=== PATIENT | female | born 1955 | race Caucasian/White ===

== ENCOUNTER 2018-02-04 08:39 | Outpatient (CLI) | payer MEDICAID ==
[~2018-02-04 08:39] MED LIST: ACET-1008 PO; ALBU8.5H4 IH; CALCIUM CARBONATE PO; DIAZ5TAB4 PO; GUAR1PAC2 PO; HYDR-3965 PO; OMEG1CAP46 PO; OMEP-84 PO; POLY17PO10 PO; SYN0.1T PO; TEG100T PO; VAL5T PO; VENL75TA4; VITAMIN D 3 PO
== END 2018-02-04 23:59 | disposition home or self-care (01) ==
LOC: RAD 08:39
PROVIDERS: ATTEND Family Medicine
DX: R56.9 Unspecified convulsions (principal); R94.31 Abnormal electrocardiogram [ECG] [EKG]; G80.8 Other cerebral palsy; J44.9 Chronic obstructive pulmonary disease, unspecified; Z79.899 Other long term (current) drug therapy
CPT/HCPCS: 95816

== ENCOUNTER 2018-03-29 13:22 | Inpatient (IN) | payer MEDICAID ==
[~2018-03-29] VITALS: Ht 149.9 cm; Wt 55.9 kg
[~2018-03-29 13:22] MED LIST changes: +ACET-1008 PEG; -ACET-1008 PO
[2018-03-29] MEDS: normal saline 1000ML IV soln IVB ONE ×2 (13:58→15:23)
[2018-03-29 14:24] LABS: BASOPHILS % (AUTO) 1.2 % (0-1); EOSINOPHILS # (AUTO) 0.3 X10'3 (0-0.9); HEMATOCRIT 36.9 % (35.0-45.0); HEMOGLOBIN 12.7 g/dl (12.0-16.0); LYMPHOCYTES % (AUTO) 40.6 % (21-51); MEAN CORPUSCULAR HEMOGLOBIN 32.6 PG (27.0-31.0); MEAN CORPUSCULAR HGB CONC 34.4 % (33.0-36.5); MEAN CORPUSCULAR VOLUME 94.8 FL (78-98); MEAN PLATELET VOLUME 7.6 FL (7.4-10.4); MONOCYTES # (AUTO) 0.2 X10'3 (0-0.9); MONOCYTES % (AUTO) 7.1 % (2-12); NEUTROPHILS % (AUTO) 39.1 % (42-75); PLATELET COUNT 231 X10'3 (140-440); RED BLOOD COUNT 3.89 X10'6 (4.20-5.60); RED CELL DISTRIBUTION WIDTH 14.3 % (11.5-14.5); WHITE BLOOD COUNT 2.5 X10'3 (4.5-11.0)
[2018-03-29 14:39] LABS: ALANINE AMINOTRANSFERASE 19 U/L (12-78); ALBUMIN 3.4 G/DL (3.4-5.0); ALKALINE PHOSPHATASE 101 IU/L (46-116); ANION GAP 9 (8-16); ASPARTATE AMINO TRANSFERASE 12 U/L (10-37); BILIRUBIN,TOTAL 0.3 MG/DL (0.1-1.0); BLOOD UREA NITROGEN 12 MG/DL (7-18); BUN/CREATININE RATIO 22.6 (6.6-38.0); CALCIUM 8.9 MG/DL (8.5-10.1); CHLORIDE 87 MMOL/L (99-107); CREATININE 0.53 MG/DL (0.40-0.90); GLUCOSE 112 MG/DL (70-104); PLATELET ESTIMATE NORMAL; POTASSIUM 4.6 MMOL/L (3.5-5.1); SODIUM 122 MMOL/L (135-145); TOTAL CELLS COUNTED 100; TOTAL PROTEIN 6.7 G/DL (6.4-8.2); eGFR > 90 ML/MIN
[2018-03-29 15:22] LABS: CLARITY,URINE CLEAR (Clear); COLOR,URINE YELLOW (Yellow); GLUCOSE, URINE NEGATIVE (Neg); KETONES,URINE NEGATIVE (Neg); LEUKOCYTE ESTERASE ,URINE NEGATIVE (Neg); NITRITES, URINE NEGATIVE (Neg); OCCULT BLOOD,URINE NEGATIVE (Neg); PH,URINE 7.5 (4.8-8.0); PROTEIN,URINE NEGATIVE (Neg); UROBILINOGEN,URINE 0.2 E.U/dL (0.2-1.0)
[2018-03-29 15:24] LABS: UA COLLECTION TYPE STRAIGHT CATH
[2018-03-29 15:41] LABS: CARBAMAZEPINE (TEGRETOL) 11.9 UG/ML (4.0-12.0)
[2018-03-29] MEDS ORDERED: POLY500P23 PEG (15:55)
[2018-03-29] MEDS ORDERED: FERR325T28 PEG (15:55)
[2018-03-29] MEDS ORDERED: LISI-600 PEG (15:55)
[2018-03-29] MEDS ORDERED: OMEP40CA37 PEG (15:55)
[2018-03-29] MEDS ORDERED: CALC300T4 PEG (15:55)
[2018-03-29] MEDS ORDERED: SODI100035 PEG (15:55)
[2018-03-29] MEDS ORDERED: LEVO500T2 PEG (15:55)
[2018-03-29] MEDS ORDERED: CHOL400C8 PEG (15:55)
[2018-03-29] MEDS ORDERED: KEP500T PEG (15:55)
[2018-03-29] MEDS ORDERED: VENL37.589 PEG (15:55)
[2018-03-29] MEDS ORDERED: CARB200T PEG (15:55)
[2018-03-29] MEDS ORDERED: VAL5T PEG (15:55)
[2018-03-29] MEDS ORDERED: LORA10TA61 PEG (15:55)
[2018-03-29] MEDS ORDERED: acetaminophen 325mg tablet PO PRN (16:15)
[2018-03-29] MEDS ORDERED: ondansetron/PF 4mg/2ml inj IV PRN (16:15)
[2018-03-29] MEDS ORDERED: mag hydrox/Alum hydrox/simeth 30ml oral suspension PO PRN (16:15)
[2018-03-29] MEDS ORDERED: diazepam 5mg tablet PEG PRN (16:15)
[2018-03-29] MEDS ORDERED: normal saline 1000ml 1,000 ML IV SCH (16:15)
[2018-03-29] MEDS ORDERED: magnesium hydroxide 30ml (MOM) UD suspension PO PRN (16:15)
[2018-03-29 17:50] VITALS: BP 158/107
[2018-03-29 18:27] LABS: OSMOLALITY 253 MOSM/K (280-300)
[2018-03-29] MEDS ORDERED: CARB15DR65 (19:21)
[2018-03-29] MEDS ORDERED: VITS42.53 TOP (19:21)
[2018-03-29] MEDS: heparin, porcine 5000 units/ml vial SQ SCH (19:27)
[2018-03-29] MEDS: levetiracetam 250mg tablet PO SCH (19:27)
[2018-03-29] MEDS: normal saline 1000ml 1,000 ML IV SCH (19:28)
[2018-03-29] MEDS ORDERED: [UNRECOGNIZED DRUG - OTHER] PEG (19:58)
[2018-03-29 22:00] VITALS: BP 144/82
[2018-03-30] MEDS: normal saline 1000ml 1,000 ML IV SCH ×2 (04:11→15:14)
[2018-03-30 04:19] LABS: BASOPHILS % (AUTO) 1.6 % (0-1); EOSINOPHILS # (AUTO) 0.3 X10'3 (0-0.9); EOSINOPHILS % (AUTO) 13.8 % (0-6); HEMATOCRIT 33.6 % (35.0-45.0); HEMOGLOBIN 11.6 g/dl (12.0-16.0); LYMPHOCYTES # (AUTO) 1.2 X10'3 (1.1-4.8); LYMPHOCYTES % (AUTO) 52.2 % (21-51); MEAN CORPUSCULAR HEMOGLOBIN 32.8 PG (27.0-31.0); MEAN CORPUSCULAR HGB CONC 34.6 % (33.0-36.5); MEAN PLATELET VOLUME 7.9 FL (7.4-10.4); MONOCYTES # (AUTO) 0.3 X10'3 (0-0.9); MONOCYTES % (AUTO) 12.5 % (2-12); NEUTROPHILS # (AUTO) 0.5 X10'3 (1.8-7.7); NEUTROPHILS % (AUTO) 19.9 % (42-75); PLATELET COUNT 229 X10'3 (140-440); RED BLOOD COUNT 3.53 X10'6 (4.20-5.60); RED CELL DISTRIBUTION WIDTH 14.6 % (11.5-14.5); WHITE BLOOD COUNT 2.4 X10'3 (4.5-11.0)
[2018-03-30 04:45] LABS: PLATELET ESTIMATE NORMAL; SPHEROCYTES FEW; TOTAL CELLS COUNTED 100
[2018-03-30 04:56] LABS: ANION GAP 9 (8-16); BLOOD UREA NITROGEN 9 MG/DL (7-18); BUN/CREATININE RATIO 21.4 (6.6-38.0); CALCIUM 8.4 MG/DL (8.5-10.1); CHLORIDE 100 MMOL/L (99-107); CREATININE 0.42 MG/DL (0.40-0.90); GLUCOSE 125 MG/DL (70-104); POTASSIUM 4.1 MMOL/L (3.5-5.1); SODIUM 135 MMOL/L (135-145); TOTAL CARBON DIOXIDE 26.4 MMOL/L (24-32); eGFR > 90 ML/MIN
[2018-03-30 06:00] VITALS: BP 157/89
[2018-03-30] MEDS ORDERED: venlafaxine XR 37.5mg cap (Q24H) PO SCH (08:00)
[2018-03-30] MEDS ORDERED: lisinopril 10 MG tablet PO SCH (08:00)
[2018-03-30] MEDS: levoTHYROXINE 100mcg tablet PO SCH (08:55)
[2018-03-30] MEDS: pantoprazole 40mg Tablet.DR PO SCH (08:55)
[2018-03-30] MEDS: polyethylene glycol 3350 17gm powd pack PO SCH (08:55)
[2018-03-30] MEDS: levetiracetam 250mg tablet PO SCH ×2 (08:55→19:45)
[2018-03-30] MEDS: heparin, porcine 5000 units/ml vial SQ SCH ×2 (08:55→19:46)
[2018-03-30] MEDS: sodium chloride 1gm tablet PO SCH (08:55)
[2018-03-30 10:00] VITALS: BP 150/84
[2018-03-30] MEDS: venlafaxine 37.5mg tablet PO SCH (12:33)
[2018-03-30] MEDS ORDERED: lisinopril 10 MG tablet PO ONE (17:35)
[2018-03-30 18:00] VITALS: BP 181/64
[2018-03-30 22:00] VITALS: BP 178/89
[2018-03-31] VITALS (7 sets, daily range): BP systolic 126–190; BP diastolic 52–93
[2018-03-31] MEDS: hydrALAZINE 20mg/ml inj. IV PRN ×2 (00:12→21:16)
[2018-03-31] MEDS: pantoprazole 40mg Tablet.DR PO SCH (07:30)
[2018-03-31] MEDS: venlafaxine 37.5mg tablet PO SCH (07:57)
[2018-03-31] MEDS: levoTHYROXINE 100mcg tablet PO SCH (07:57)
[2018-03-31] MEDS: lisinopril 20mg tablet PO SCH (07:57)
[2018-03-31] MEDS: levetiracetam 250mg tablet PO SCH ×2 (07:57→20:41)
[2018-03-31] MEDS: heparin, porcine 5000 units/ml vial SQ SCH ×2 (07:58→20:41)
[2018-03-31] MEDS: normal saline 1000ml 1,000 ML IV SCH ×2 (07:59→23:19)
[2018-03-31] MEDS: sodium chloride 1gm tablet PO SCH (08:00)
[2018-03-31 09:54] LABS: BASOPHILS % (AUTO) 0.7 % (0-1); EOSINOPHILS # (AUTO) 0.2 X10'3 (0-0.9); EOSINOPHILS % (AUTO) 5.6 % (0-6); HEMATOCRIT 36.5 % (35.0-45.0); HEMOGLOBIN 12.4 g/dl (12.0-16.0); LYMPHOCYTES # (AUTO) 0.7 X10'3 (1.1-4.8); MEAN CORPUSCULAR HEMOGLOBIN 32.6 PG (27.0-31.0); MEAN CORPUSCULAR VOLUME 95.8 FL (78-98); MEAN PLATELET VOLUME 8.1 FL (7.4-10.4); MONOCYTES # (AUTO) 0.4 X10'3 (0-0.9); MONOCYTES % (AUTO) 12.9 % (2-12); NEUTROPHILS # (AUTO) 2.1 X10'3 (1.8-7.7); NEUTROPHILS % (AUTO) 60.8 % (42-75); PLATELET COUNT 219 X10'3 (140-440); RED BLOOD COUNT 3.81 X10'6 (4.20-5.60); RED CELL DISTRIBUTION WIDTH 14.4 % (11.5-14.5); WHITE BLOOD COUNT 3.4 X10'3 (4.5-11.0)
[2018-03-31 10:13] LABS: ALANINE AMINOTRANSFERASE 20 U/L (12-78); ALBUMIN 3.3 G/DL (3.4-5.0); ALKALINE PHOSPHATASE 106 IU/L (46-116); ANION GAP 11 (8-16); ASPARTATE AMINO TRANSFERASE 15 U/L (10-37); BILIRUBIN,TOTAL 0.3 MG/DL (0.1-1.0); BLOOD UREA NITROGEN 11 MG/DL (7-18); BUN/CREATININE RATIO 34.4 (6.6-38.0); CALCIUM 8.5 MG/DL (8.5-10.1); CHLORIDE 95 MMOL/L (99-107); CREATININE 0.32 MG/DL (0.40-0.90); GLUCOSE 94 MG/DL (70-104); POTASSIUM 4.2 MMOL/L (3.5-5.1); SODIUM 131 MMOL/L (135-145); TOTAL CARBON DIOXIDE 25.2 MMOL/L (24-32); TOTAL PROTEIN 6.7 G/DL (6.4-8.2); eGFR > 90 ML/MIN
[2018-03-31 13:14] LABS: OSMOLALITY 271 MOSM/K (280-300)
[2018-03-31] MEDS ORDERED: LIDOcaine 2% 10ml TOPICAL JELLY (Urojet) MM ONE (14:05)
[2018-03-31] MEDS: amLODIPine 5mg tablet PEG SCH (14:45)
[2018-03-31 15:51] LABS: C DIFF ANTIGEN NEGATIVE (NEGATIVE); C DIFF SPECIMEN=DIARRHEA? ACCEPTABLE; C DIFFICILE TOXINS A&B NEGATIVE (Neg)
[2018-04-01 05:21] LABS: BASOPHILS % (AUTO) 1.3 % (0-1); EOSINOPHILS # (AUTO) 0.2 X10'3 (0-0.9); EOSINOPHILS % (AUTO) 9.7 % (0-6); HEMATOCRIT 31.7 % (35.0-45.0); HEMOGLOBIN 10.8 g/dl (12.0-16.0); LYMPHOCYTES # (AUTO) 1.1 X10'3 (1.1-4.8); LYMPHOCYTES % (AUTO) 47.3 % (21-51); MEAN CORPUSCULAR HEMOGLOBIN 32.5 PG (27.0-31.0); MEAN CORPUSCULAR HGB CONC 34.2 % (33.0-36.5); MEAN CORPUSCULAR VOLUME 95.2 FL (78-98); MEAN PLATELET VOLUME 8.9 FL (7.4-10.4); MONOCYTES # (AUTO) 0.4 X10'3 (0-0.9); MONOCYTES % (AUTO) 18.5 % (2-12); NEUTROPHILS # (AUTO) 0.5 X10'3 (1.8-7.7); NEUTROPHILS % (AUTO) 23.2 % (42-75); PLATELET COUNT 166 X10'3 (140-440); RED BLOOD COUNT 3.33 X10'6 (4.20-5.60); RED CELL DISTRIBUTION WIDTH 14.1 % (11.5-14.5); WHITE BLOOD COUNT 2.4 X10'3 (4.5-11.0)
[2018-04-01 06:29] LABS: PLATELET ESTIMATE NORMAL; SMUDGE CELLS 1+; TOTAL CELLS COUNTED 100
[2018-04-01 07:08] VITALS: BP 138/57
[2018-04-01] MEDS: polyethylene glycol 3350 17gm powd pack PO SCH ×2 (08:00→08:24)
[2018-04-01] MEDS: sodium chloride 1gm tablet PO SCH (08:24)
[2018-04-01] MEDS: levoTHYROXINE 100mcg tablet PO SCH (08:24)
[2018-04-01] MEDS: amLODIPine 5mg tablet PEG SCH (08:24)
[2018-04-01] MEDS: venlafaxine 37.5mg tablet PO SCH (08:24)
[2018-04-01] MEDS: lisinopril 20mg tablet PO SCH (08:24)
[2018-04-01] MEDS: levetiracetam 250mg tablet PO SCH ×2 (08:24→19:40)
[2018-04-01] MEDS: pantoprazole 40mg Tablet.DR PO SCH (08:24)
[2018-04-01] MEDS: heparin, porcine 5000 units/ml vial SQ SCH ×2 (08:26→19:41)
[2018-04-01 08:27] LABS: ALBUMIN 2.8 G/DL (3.4-5.0); ANION GAP 10 (8-16); BLOOD UREA NITROGEN 10 MG/DL (7-18); CHLORIDE 100 MMOL/L (99-107); CREATININE 0.37 MG/DL (0.40-0.90); GLUCOSE 94 MG/DL (70-104); POTASSIUM 4.2 MMOL/L (3.5-5.1); PREALBUMIN 24.3 MG/DL (19-36); SODIUM 136 MMOL/L (135-145); TOTAL CARBON DIOXIDE 25.6 MMOL/L (24-32); eGFR > 90 ML/MIN
[2018-04-01] MEDS ORDERED: LEVE250T PO (13:02)
[2018-04-01] MEDS: normal saline 1000ml 1,000 ML IV SCH (15:16)
[2018-04-01 18:00] VITALS: BP 150/75
[2018-04-01] MEDS: barium sulfate 450ml oral suspension PO SCH (18:15)
[2018-04-01 21:48] VITALS: BP 144/66
[2018-04-02 05:00] VITALS: BP 137/51
[2018-04-02 05:21] LABS: EOSINOPHILS # (AUTO) 0.3 X10'3 (0-0.9); EOSINOPHILS % (AUTO) 10.2 % (0-6); HEMATOCRIT 31.3 % (35.0-45.0); HEMOGLOBIN 10.6 g/dl (12.0-16.0); LYMPHOCYTES % (AUTO) 40.7 % (21-51); MEAN CORPUSCULAR HEMOGLOBIN 32.6 PG (27.0-31.0); MEAN CORPUSCULAR HGB CONC 33.8 % (33.0-36.5); MEAN CORPUSCULAR VOLUME 96.4 FL (78-98); MEAN PLATELET VOLUME 9.4 FL (7.4-10.4); MONOCYTES # (AUTO) 0.4 X10'3 (0-0.9); MONOCYTES % (AUTO) 16.2 % (2-12); NEUTROPHILS # (AUTO) 0.8 X10'3 (1.8-7.7); NEUTROPHILS % (AUTO) 31.9 % (42-75); PLATELET COUNT 152 X10'3 (140-440); RED BLOOD COUNT 3.25 X10'6 (4.20-5.60); WHITE BLOOD COUNT 2.5 X10'3 (4.5-11.0)
[2018-04-02] MEDS: hydrALAZINE 20mg/ml inj. IV PRN ×2 (05:25→20:36)
[2018-04-02] MEDS ORDERED: albuterol 2.5 MG/3 ML nebule NEB ONE (05:50)
[2018-04-02] MEDS: barium sulfate 450ml oral suspension PO SCH ×2 (07:00→09:00)
[2018-04-02 07:20] LABS: TOTAL CELLS COUNTED 100
[2018-04-02 07:21] LABS: PLATELET ESTIMATE NORMAL
[2018-04-02] MEDS: normal saline 1000ml 1,000 ML IV SCH ×2 (07:56→20:16)
[2018-04-02] MEDS ORDERED: iohexol 300mg/ml 100ml inj. ONE (07:57)
[2018-04-02] MEDS ORDERED: diatrozoate meglu/diatrozoate sod (37% iodine) 120ML oral solution ONE (07:57)
[2018-04-02] MEDS: heparin, porcine 5000 units/ml vial SQ SCH ×2 (08:00→19:44)
[2018-04-02 08:21] LABS: ALANINE AMINOTRANSFERASE 17 U/L (12-78); ALBUMIN 2.8 G/DL (3.4-5.0); ALBUMIN/GLOBULIN RATIO 0.9 (1.1-1.5); ALKALINE PHOSPHATASE 87 IU/L (46-116); ANION GAP 10 (8-16); ASPARTATE AMINO TRANSFERASE 13 U/L (10-37); BILIRUBIN,TOTAL 0.2 MG/DL (0.1-1.0); BLOOD UREA NITROGEN 11 MG/DL (7-18); BUN/CREATININE RATIO 26.2 (6.6-38.0); CALCIUM 8.4 MG/DL (8.5-10.1); CHLORIDE 96 MMOL/L (99-107); CREATININE 0.42 MG/DL (0.40-0.90); GLUCOSE 119 MG/DL (70-104); POTASSIUM 3.9 MMOL/L (3.5-5.1); SODIUM 128 MMOL/L (135-145); TOTAL CARBON DIOXIDE 22.5 MMOL/L (24-32); TOTAL PROTEIN 5.9 G/DL (6.4-8.2); eGFR > 90 ML/MIN
[2018-04-02 10:00] VITALS: BP 179/73
[2018-04-02] MEDS: venlafaxine 37.5mg tablet PO SCH (10:06)
[2018-04-02] MEDS: amLODIPine 5mg tablet PEG SCH (10:06)
[2018-04-02] MEDS: pantoprazole 40mg Tablet.DR PO SCH (10:06)
[2018-04-02] MEDS: levoTHYROXINE 100mcg tablet PO SCH (10:07)
[2018-04-02] MEDS: levetiracetam 250mg tablet PO SCH ×2 (10:07→19:43)
[2018-04-02] MEDS: sodium chloride 1gm tablet PO SCH ×2 (10:07→19:44)
[2018-04-02] MEDS: lisinopril 20mg tablet PO SCH (10:07)
[2018-04-02 10:09] VITALS: BP 181/77
[2018-04-02 18:00] VITALS: BP 189/97
[2018-04-02] MEDS ORDERED: PEG 3350/Na sulf,bicarb,Cl/KCl oral sol 4 liter bottle PO ONE (18:45)
[2018-04-02 22:00] VITALS: BP 179/81
[2018-04-03] VITALS (7 sets, daily range): BP systolic 101–213; BP diastolic 42–98
[2018-04-03] MEDS: normal saline 1000ml 1,000 ML IV SCH ×2 (03:13→07:49)
[2018-04-03 04:40] LABS: BASOPHILS % (AUTO) 1.4 % (0-1); EOSINOPHILS # (AUTO) 0.3 X10'3 (0-0.9); HEMATOCRIT 33.1 % (35.0-45.0); HEMOGLOBIN 11.1 g/dl (12.0-16.0); LYMPHOCYTES # (AUTO) 0.8 X10'3 (1.1-4.8); LYMPHOCYTES % (AUTO) 37.6 % (21-51); MEAN CORPUSCULAR HGB CONC 33.5 % (33.0-36.5); MEAN CORPUSCULAR VOLUME 95.3 FL (78-98); MEAN PLATELET VOLUME 7.9 FL (7.4-10.4); MONOCYTES # (AUTO) 0.3 X10'3 (0-0.9); MONOCYTES % (AUTO) 12.8 % (2-12); NEUTROPHILS # (AUTO) 0.7 X10'3 (1.8-7.7); NEUTROPHILS % (AUTO) 34.2 % (42-75); PLATELET COUNT 203 X10'3 (140-440); RED BLOOD COUNT 3.47 X10'6 (4.20-5.60); RED CELL DISTRIBUTION WIDTH 14.3 % (11.5-14.5); WHITE BLOOD COUNT 2.1 X10'3 (4.5-11.0)
[2018-04-03 05:15] LABS: TOTAL CELLS COUNTED 100
[2018-04-03 05:17] LABS: PLATELET ESTIMATE NORMAL
[2018-04-03 06:20] LABS: ALANINE AMINOTRANSFERASE 22 U/L (12-78); ALKALINE PHOSPHATASE 85 IU/L (46-116); ANION GAP 11 (8-16); ASPARTATE AMINO TRANSFERASE 17 U/L (10-37); BILIRUBIN,TOTAL 0.3 MG/DL (0.1-1.0); BLOOD UREA NITROGEN 6 MG/DL (7-18); BUN/CREATININE RATIO 14.6 (6.6-38.0); CALCIUM 8.6 MG/DL (8.5-10.1); CHLORIDE 104 MMOL/L (99-107); CREATININE 0.41 MG/DL (0.40-0.90); GLUCOSE 99 MG/DL (70-104); POTASSIUM 3.8 MMOL/L (3.5-5.1); SODIUM 137 MMOL/L (135-145); TOTAL PROTEIN 6.1 G/DL (6.4-8.2); eGFR > 90 ML/MIN
[2018-04-03] MEDS: polyethylene glycol 3350 17gm powd pack PO SCH (07:06)
[2018-04-03] MEDS: venlafaxine 37.5mg tablet PO SCH (07:42)
[2018-04-03] MEDS: levetiracetam 250mg tablet PO SCH ×2 (07:42→19:15)
[2018-04-03] MEDS: amLODIPine 5mg tablet PEG SCH (07:42)
[2018-04-03] MEDS: pantoprazole 40mg Tablet.DR PO SCH (07:42)
[2018-04-03] MEDS: sodium chloride 1gm tablet PO SCH ×2 (07:43→19:15)
[2018-04-03] MEDS: lisinopril 20mg tablet PO SCH (07:43)
[2018-04-03] MEDS: levoTHYROXINE 100mcg tablet PO SCH (07:43)
[2018-04-03] MEDS: heparin, porcine 5000 units/ml vial SQ SCH ×2 (07:46→19:15)
[2018-04-03] MEDS: hydrALAZINE 20mg/ml inj. IV PRN ×2 (10:17→15:48)
[2018-04-04] MEDS: normal saline 1000ml 1,000 ML IV SCH ×2 (00:16→20:26)
[2018-04-04] MEDS: hyDRALAzine 10mg tablet PO SCH ×2 (00:19→05:48)
[2018-04-04] MEDS ORDERED: amLODIPine 5mg tablet PO ONE (05:45)
[2018-04-04] MEDS: amLODIPine 5mg tablet PEG SCH (05:47)
[2018-04-04 06:00] VITALS: BP 221/112
[2018-04-04 06:16] LABS: ALANINE AMINOTRANSFERASE 22 U/L (12-78); ALBUMIN 2.9 G/DL (3.4-5.0); ALBUMIN/GLOBULIN RATIO 0.9 (1.1-1.5); ALKALINE PHOSPHATASE 79 IU/L (46-116); ANION GAP 11 (8-16); ASPARTATE AMINO TRANSFERASE 17 U/L (10-37); BILIRUBIN,TOTAL 0.4 MG/DL (0.1-1.0); BLOOD UREA NITROGEN 5 MG/DL (7-18); BUN/CREATININE RATIO 10.9 (6.6-38.0); CALCIUM 8.4 MG/DL (8.5-10.1); CHLORIDE 101 MMOL/L (99-107); CREATININE 0.46 MG/DL (0.40-0.90); GLUCOSE 94 MG/DL (70-104); POTASSIUM 3.4 MMOL/L (3.5-5.1); SODIUM 135 MMOL/L (135-145); TOTAL CARBON DIOXIDE 22.7 MMOL/L (24-32); eGFR > 90 ML/MIN
[2018-04-04 07:32] LABS: WHITE BLOOD COUNT 2.5 X10'3 (4.5-11.0)
[2018-04-04 07:33] LABS: HEMATOCRIT 31.8 % (35.0-45.0); HEMOGLOBIN 10.8 g/dl (12.0-16.0); MEAN CORPUSCULAR HEMOGLOBIN 32.5 PG (27.0-31.0); MEAN CORPUSCULAR HGB CONC 33.9 % (33.0-36.5); PLATELET COUNT 183 X10'3 (140-440); RED BLOOD COUNT 3.32 X10'6 (4.20-5.60); RED CELL DISTRIBUTION WIDTH 13.1 % (11.5-14.5)
[2018-04-04 07:34] LABS: BASOPHILS % (AUTO) 0.7 % (0-1); EOSINOPHILS # (AUTO) 0.3 X10'3 (0-0.9); EOSINOPHILS % (AUTO) 12.5 % (0-6); LYMPHOCYTES # (AUTO) 0.8 X10'3 (1.1-4.8); LYMPHOCYTES % (AUTO) 32.9 % (21-51); MEAN PLATELET VOLUME 8.5 FL (7.4-10.4); MONOCYTES # (AUTO) 0.3 X10'3 (0-0.9); MONOCYTES % (AUTO) 12.5 % (2-12); NEUTROPHILS # (AUTO) 1.1 X10'3 (1.8-7.7); NEUTROPHILS % (AUTO) 41.4 % (42-75)
[2018-04-04] MEDS ORDERED: lisinopril 10 MG tablet PO ONE (08:45)
[2018-04-04] MEDS: heparin, porcine 5000 units/ml vial SQ SCH ×2 (09:15→21:01)
[2018-04-04 09:18] LABS: PLATELET ESTIMATE NORMAL; TOTAL CELLS COUNTED 100
[2018-04-04 09:19] LABS: SCHISTOCYTES FEW
[2018-04-04] MEDS: levoTHYROXINE 100mcg tablet PO SCH (09:21)
[2018-04-04] MEDS: levetiracetam 250mg tablet PO SCH (09:21)
[2018-04-04] MEDS: pantoprazole 40mg Tablet.DR PO SCH (09:22)
[2018-04-04] MEDS: venlafaxine 37.5mg tablet PO SCH (09:22)
[2018-04-04] MEDS: sodium chloride 1gm tablet PO SCH (09:22)
[2018-04-04 10:00] VITALS: BP 160/68
[2018-04-04] MEDS ORDERED: LEVE250T4 PO (13:59)
[2018-04-04] MEDS ORDERED: LISI-600 PO (13:59)
[2018-04-04] MEDS ORDERED: HYDR-4069 PO (13:59)
[2018-04-04] MEDS ORDERED: SODI1TAB2 PO (13:59)
[2018-04-04] MEDS ORDERED: NOR5T PEG (13:59)
[2018-04-04] MEDS ORDERED: VENL-191 PEG (16:16)
[2018-04-04] MEDS ORDERED: hyDRALAzine tablet PEG (16:16)
[2018-04-04] MEDS ORDERED: acetaminophen 325mg tablet PEG PRN (16:20)
[2018-04-04] MEDS ORDERED: levoTHYROXINE 100mcg tablet PEG SCH (16:22)
[2018-04-04] MEDS ORDERED: mag hydrox/Alum hydrox/simeth 30ml oral suspension PEG PRN (16:23)
[2018-04-04] MEDS ORDERED: magnesium hydroxide 30ml (MOM) UD suspension PEG PRN (16:24)
[2018-04-04] MEDS ORDERED: polyethylene glycol 3350 17gm powd pack PEG SCH (16:27)
[2018-04-04] MEDS ORDERED: venlafaxine 37.5mg tablet PEG SCH (16:31)
[2018-04-04 18:00] VITALS: BP 154/65
[2018-04-04] MEDS ORDERED: potassium Cl 20 mEq SR tablet PO PRN (18:10)
[2018-04-04] MEDS ORDERED: potassium Cl 40MEQ/NS 500ml 500 ML IV PRN ×2 (18:10)
[2018-04-04] MEDS: levetiracetam 250mg tablet PEG SCH (21:00)
[2018-04-04] MEDS: sodium chloride 1gm tablet PEG SCH (21:01)
[2018-04-04] MEDS: potassium Cl 20 mEq SR tablet PO PRN (21:15)
[2018-04-04 22:00] VITALS: BP 175/74
[2018-04-04] MEDS: hyDRALAzine 10mg tablet PEG SCH (23:31)
[2018-04-05] MEDS: potassium Cl 20 mEq SR tablet PO PRN ×2 (04:08→08:20)
[2018-04-05 07:00] VITALS: BP 153/56
[2018-04-05] MEDS ORDERED: lisinopril 20mg tablet PEG SCH (08:00)
[2018-04-05] MEDS ORDERED: K and/or MAG REPLACEMENT MC SCH (08:00)
[2018-04-05] MEDS: hyDRALAzine 10mg tablet PEG SCH ×2 (08:18→16:00)
[2018-04-05] MEDS: levetiracetam 250mg tablet PEG SCH (08:19)
[2018-04-05] MEDS: sodium chloride 1gm tablet PEG SCH (08:19)
[2018-04-05] MEDS: pantoprazole 40mg Tablet.DR PO SCH (08:19)
[2018-04-05] MEDS: amLODIPine 5mg tablet PEG SCH (08:20)
[2018-04-05] MEDS: heparin, porcine 5000 units/ml vial SQ SCH (08:21)
== END 2018-04-05 16:15 | disposition home or self-care (01) | DRG 426 ==
LOC: ER 13:22 → ED HOLD 16:15 → ORTHO 4S 18:00
PROVIDERS: ADMIT Internal Medicine; ATTEND Family Medicine
PROC: BW251ZZ Computerized Tomography (CT Scan) of Chest, Abdomen and Pelvis using Low Osmolar Contrast (ICD-10-PCS; principal; 2018-04-02)
DX: E87.1 Hypo-osmolality and hyponatremia (principal); K56.2 Volvulus; D64.9 Anemia, unspecified; G40.909 Epilepsy, unspecified, not intractable, without status epilepticus; E03.9 Hypothyroidism, unspecified; F79 Unspecified intellectual disabilities; T42.1X5A Adverse effect of iminostilbenes, initial encounter; I10 Essential (primary) hypertension; F32.9 Major depressive disorder, single episode, unspecified; R19.7 Diarrhea, unspecified; Z87.01 Personal history of pneumonia (recurrent); Z91.048 Other nonmedicinal substance allergy status; Y92.89 Other specified places as the place of occurrence of the external cause; Z79.899 Other long term (current) drug therapy
CPT/HCPCS: 36415; 71045; 71260; 74018; 74177; 80048; 80053; 80156; 81003; 83930; 84132; 84134; 84443; 85025; 87070; 87324; 87449; 94640; 94760; 96360; 99285; A4353; A4649; A6212; A6250; J0360; J1644; J7030; Q9963; Q9967

== ENCOUNTER 2018-06-01 12:14 | Emergency (ER) | payer MEDICAID ==
[~2018-06-01] VITALS: Ht 121.9 cm; Wt 54.0 kg
[~2018-06-01 12:14] MED LIST changes: -ALBU8.5H4 IH; +CALC300T4 PEG; -CALCIUM CARBONATE PO; +CARB15DR65; +CHOL400C8 PEG; -DIAZ5TAB4 PO; +FERR325T28 PEG; -HYDR-3965 PO; +KEP500T PEG; +LEVE250T4 PO; +LISI-600 PEG; +LISI-600 PO; +LORA10TA61 PEG; +NOR5T PEG; -OMEP-84 PO; +OMEP40CA37 PEG; -POLY17PO10 PO; +POLY500P23 PEG; +SODI100035 PEG; +SODI1TAB2 PO; -TEG100T PO; +VAL5T PEG; -VAL5T PO; +VENL-191 PEG; +VENL37.589 PEG; -VENL75TA4; -VITAMIN D 3 PO; +VITS42.53 TOP; +[UNRECOGNIZED DRUG - OTHER] PEG; +hyDRALAzine tablet PEG
[2018-06-01 12:59] LABS: CLARITY,URINE CLOUDY (Clear); COLOR,URINE YELLOW (Yellow); GLUCOSE, URINE NEGATIVE (Neg); KETONES,URINE NEGATIVE (Neg); LEUKOCYTE ESTERASE ,URINE LARGE (Neg); NITRITES, URINE POSITIVE (Neg); OCCULT BLOOD,URINE NEGATIVE (Neg); PROTEIN,URINE NEGATIVE (Neg); UROBILINOGEN,URINE 0.2 E.U/dL (0.2-1.0)
[2018-06-01 13:09] LABS: URINE AMPHETAMINE SCREEN NEGATIVE (Neg); URINE BARBITUATE SCREEN NEGATIVE (Neg); URINE BENZODIAZEPINES SCREEN NEGATIVE (Neg); URINE CANNABINOID SCREEN NEGATIVE (Neg); URINE COCAINE SCREEN NEGATIVE (Neg); URINE METHADONE SCREEN NEGATIVE (Neg); URINE OPIATE SCREEN NEGATIVE (Neg); URINE PHENCYCLIDINE SCREEN NEGATIVE (Neg)
[2018-06-01 13:10] LABS: UA COLLECTION TYPE OTHER
[2018-06-01 13:12] LABS: BASOPHILS % (AUTO) 0.6 % (0-1); EOSINOPHILS # (AUTO) 0.7 X10'3 (0-0.9); EOSINOPHILS % (AUTO) 15.9 % (0-6); HEMATOCRIT 43.5 % (35.0-45.0); HEMOGLOBIN 14.7 g/dl (12.0-16.0); LYMPHOCYTES # (AUTO) 1.4 X10'3 (1.1-4.8); LYMPHOCYTES % (AUTO) 30.3 % (21-51); MEAN CORPUSCULAR HEMOGLOBIN 32.3 PG (27.0-31.0); MEAN CORPUSCULAR HGB CONC 33.7 % (33.0-36.5); MEAN CORPUSCULAR VOLUME 95.6 FL (78-98); MEAN PLATELET VOLUME 9.9 FL (7.4-10.4); MONOCYTES # (AUTO) 0.3 X10'3 (0-0.9); MONOCYTES % (AUTO) 6.1 % (2-12); NEUTROPHILS # (AUTO) 2.2 X10'3 (1.8-7.7); NEUTROPHILS % (AUTO) 47.1 % (42-75); PLATELET COUNT 155 X10'3 (140-440); RED BLOOD COUNT 4.55 X10'6 (4.20-5.60); RED CELL DISTRIBUTION WIDTH 12.8 % (11.5-14.5); WHITE BLOOD COUNT 4.7 X10'3 (4.5-11.0)
[2018-06-01 13:15] LABS: BACTERIA,URINE 4+ /HPF (Neg); MUCUS STRANDS FEW /LPF (Neg); RBC,URINE NONE SEEN /HPF (0-2); SQUAMOUS EPITHELIAL CELL,UR MANY /LPF (FEW)
[2018-06-01 13:26] LABS: PARTIAL THROMBOPLASTIN TIME 28 SECONDS (22-32)
[2018-06-01 13:28] LABS: ALANINE AMINOTRANSFERASE 27 U/L (12-78); ALBUMIN 3.7 G/DL (3.4-5.0); ALBUMIN/GLOBULIN RATIO 0.9 (1.1-1.5); ALKALINE PHOSPHATASE 145 IU/L (46-116); ANION GAP 8 (8-16); ASPARTATE AMINO TRANSFERASE 16 U/L (10-37); BILIRUBIN,TOTAL 0.3 MG/DL (0.1-1.0); BLOOD UREA NITROGEN 18 MG/DL (7-18); BUN/CREATININE RATIO 32.7 (6.6-38.0); CALCIUM 9.3 MG/DL (8.5-10.1); CHLORIDE 103 MMOL/L (99-107); CREATININE 0.55 MG/DL (0.40-0.90); GLUCOSE 92 MG/DL (70-104); POTASSIUM 4.9 MMOL/L (3.5-5.1); SODIUM 138 MMOL/L (135-145); TOTAL CARBON DIOXIDE 27.2 MMOL/L (24-32); TOTAL PROTEIN 7.6 G/DL (6.4-8.2); eGFR > 90 ML/MIN
[2018-06-01 13:31] LABS: ETHANOL < 0.010 GM/DL (0.0-0.010); TROPONIN I 0.04 NG/ML (0.0-0.05)
[2018-06-01] MEDS ORDERED: amoxicillin 250MG/5ML oral suspension 80ML PEG SCH (13:50)
[2018-06-01] MEDS ORDERED: amoxicillin 250MG/5ML oral suspension 80ML PEG ONE (13:50)
[2018-06-01] MEDS ORDERED: AMO250L PO (13:55)
[2018-06-01 14:46] VITALS: BP 143/75
[2018-06-01] MEDS ORDERED: AMO250L PEG (15:25)
== END 2018-06-01 15:45 | disposition home or self-care (01) ==
LOC: ER 12:15
DX: N39.0 Urinary tract infection, site not specified (principal); J44.9 Chronic obstructive pulmonary disease, unspecified; M81.0 Age-related osteoporosis without current pathological fracture; Z90.49 Acquired absence of other specified parts of digestive tract; Z88.8 Allergy status to other drugs, medicaments and biological substances; Z79.899 Other long term (current) drug therapy
CPT/HCPCS: 36415; 70450; 71045; 80053; 80305; 80320; 81001; 82140; 84484; 85025; 85610; 85730; 87077; 87088; 87186; 99284

== ENCOUNTER 2019-03-21 07:24 | Day surgery (SDC) | payer MEDICARE, MEDICAID ==
[~2019-03-21] VITALS: Ht 154.9 cm; Wt 53.1 kg
[~2019-03-21 07:24] MED LIST changes: +ATR0.5NEB IH; +DIAZ10TA PO; +GLYC-10 RC; -GUAR1PAC2 PO; +HYDROCORTISONE 2.5% TOP; -KEP500T PEG; -LEVE250T4 PO; +LEVE500T PEG; +LEVE500T PO; +LIDOcaine 2% (20mg/ml) 5ml vial ONE; -LISI-600 PEG; -LISI-600 PO; +MAGN400O6 PO; +NA P133E4 RC; +NUTR250L26 PEG; +OMEP40CA13 PEG; -OMEP40CA37 PEG; -SODI100035 PEG; -SODI1TAB2 PO; -VENL-191 PEG; -VENL37.589 PEG; +[UNRECOGNIZED DRUG - CODE] PEG; +[UNRECOGNIZED DRUG - OTHER] PEG; -[UNRECOGNIZED DRUG - OTHER] PEG; +albuterol 2.5 MG/3 ML nebule NEB ONE; +famotidine 20mg tablet PO ONE; +fentaNYL/PF 50MCG/1 ML 2ML syringe ONE; -hyDRALAzine tablet PEG; +midazolam 2 mg/2 ml injection ONE; +ondansetron/PF 4mg/2ml inj ONE; +oxymetazoline 15 ML nasal spray NS ONE; +propofol inj 20 ML IV ONE; +ringers solution, lacted 1,000 ML IV SCH; +rocuronium 10mg/ml inj IV ONE
[2019-03-21 07:25] VITALS: BP 139/77
[2019-03-21] MEDS ORDERED: ringers solution, lacted 1,000 ML IV SCH (07:51)
[2019-03-21] MEDS ORDERED: labetalol 20mg/4ml (5mg/ml) syringe IV PRN (07:55)
[2019-03-21] MEDS ORDERED: hydrALAZINE 20mg/ml inj. IV PRN (07:55)
[2019-03-21] MEDS ORDERED: fentaNYL/PF 50MCG/1 ML 2ML syringe IV PRN ×2 (07:55)
[2019-03-21] MEDS ORDERED: morphine 4 MG/ML inj SYRINge IV PRN ×2 (07:55)
[2019-03-21] MEDS ORDERED: ondansetron/PF 4mg/2ml inj IV PRN (07:55)
[2019-03-21] MEDS ORDERED: neostigmine methylsulfate 1 MG/ML 10ml vial ONE (08:30)
[2019-03-21] MEDS ORDERED: sevoflurane 250ml liquid IH ONE (08:30)
[2019-03-21] MEDS ORDERED: dexamethasone sod phosphate 10mg/ml inj ONE (08:30)
[2019-03-21] MEDS ORDERED: glycopyrrolate 0.2mg/ml inj ONE (08:30)
[2019-03-21 08:44] LABS: BASOPHILS % (AUTO) 0.6 % (0-1); EOSINOPHILS # (AUTO) 0.4 X10'3 (0-0.9); EOSINOPHILS % (AUTO) 8.5 % (0-6); LYMPHOCYTES # (AUTO) 1.2 X10'3 (1.1-4.8); LYMPHOCYTES % (AUTO) 25.8 % (21-51); MEAN CORPUSCULAR HEMOGLOBIN 31.5 PG (27.0-31.0); MEAN CORPUSCULAR HGB CONC 33.6 g/dL (33.0-36.5); MEAN CORPUSCULAR VOLUME 93.9 FL (78-98); MONOCYTES # (AUTO) 0.5 X10'3 (0-0.9); MONOCYTES % (AUTO) 10.4 % (2-12); NEUTROPHILS # (AUTO) 2.6 X10'3 (1.8-7.7); NEUTROPHILS % (AUTO) 54.7 % (42-75); PRE OP HEMATOCRIT 41.8 % (35.0-45.0); PRE OP PLATELET COUNT 153 X10'3 (140-440); RED BLOOD COUNT 4.45 X10'6 (4.20-5.60); RED CELL DISTRIBUTION WIDTH 13.5 % (11.5-14.5)
[2019-03-21 08:54] LABS: ALBUMIN 3.6 G/DL (3.4-5.0); ALBUMIN/GLOBULIN RATIO 0.9 (1.1-1.5); ALKALINE PHOSPHATASE 135 IU/L (46-116); BLOOD UREA NITROGEN 21 MG/DL (7-18); BUN/CREATININE RATIO 35.6 (6.6-38.0); CALCIUM 9.1 MG/DL (8.5-10.1); CHLORIDE 101 MMOL/L (99-107); CREATININE 0.59 MG/DL (0.40-0.90); PRE OP ALT 30 U/L (30-65); PRE OP ANION GAP 7 (8-16); PRE OP AST 15 U/L (10-37); PRE OP BILIRUB, TOTAL 0.2 MG/DL (0.0-1.0); PRE OP GLUCOSE 86 MG/DL (70-104); PRE OP POTASSIUM 4.9 MMOL/L (3.4-5.1); PRE OP SODIUM 137 MMOL/L (135-145); TOTAL CARBON DIOXIDE 29.5 MMOL/L (24-32); TOTAL PROTEIN 7.7 G/DL (6.4-8.2); eGFR > 90 ML/MIN
[2019-03-21] MEDS ORDERED: labetalol 20mg/4ml (5mg/ml) syringe IV ONE (09:24)
[2019-03-21 09:55] VITALS: BP 124/60
--- NOTE | 2019-03-21 09:55 | NUR ---
ADMITTED TO PACU FROM OR ACCOMPANIED BY ANESTHESIA. INTIAL PHYSICAL ASSESSMENT DONE AND RECORDED. AWAKE AND RESPONSE ON ARRIVE YO PACU, REPORT RECEIVED FROM ANESTHESIA.
[2019-03-21 10:05] VITALS: BP 97/51
[2019-03-21 10:15] VITALS: BP 99/56
[2019-03-21 10:25] VITALS: BP 102/55
[2019-03-21 10:35] VITALS: BP 108/56
--- NOTE | 2019-03-21 10:45 | NUR ---
Discharge criteria met, discharge instructions given to caregivers who demonstrate verbal understanding. Discharged to residential accompanied by caregivers in good condition.
== END 2019-03-21 10:45 | disposition home or self-care (01) ==
LOC: PAS 07:24
PROVIDERS: ATTEND Dentist
DX: K05.30 Chronic periodontitis, unspecified (principal); K21.9 Gastro-esophageal reflux disease without esophagitis; E03.9 Hypothyroidism, unspecified; I10 Essential (primary) hypertension; Z79.899 Other long term (current) drug therapy
CPT/HCPCS: 36415; 41899; 80053; 85025; 93005; J1100; J2001; J2250; J2405; J2704; J2710; J3010; A4618; A7000; J3490; J7120

== ENCOUNTER 2021-06-24 20:44 | Emergency (ER) | payer MEDICARE, MEDICAID ==
[~2021-06-24] VITALS: Ht 162.6 cm; Wt 54.1 kg
[~2021-06-24 20:44] MED LIST changes: -LIDOcaine 2% (20mg/ml) 5ml vial ONE; -OMEP40CA13 PEG; -VAL5T PEG; -albuterol 2.5 MG/3 ML nebule NEB ONE; -famotidine 20mg tablet PO ONE; -fentaNYL/PF 50MCG/1 ML 2ML syringe ONE; -midazolam 2 mg/2 ml injection ONE; -ondansetron/PF 4mg/2ml inj ONE; -oxymetazoline 15 ML nasal spray NS ONE; -propofol inj 20 ML IV ONE; -ringers solution, lacted 1,000 ML IV SCH; -rocuronium 10mg/ml inj IV ONE
[2021-06-24] MEDS ORDERED: HYDR-3965 PO (22:48)
--- NOTE | 2021-06-24 22:49 | NUR ---
MD at bedside - cancel all orders after consult with ortho MD. RN at bedside notified. will arrange transportation
[2021-06-24] MEDS ORDERED: HYDR-3965 GT (23:26)
[2021-06-24 23:34] VITALS: BP 112/80
== END 2021-06-24 23:38 | disposition home or self-care (01) ==
LOC: ER 20:44
DX: S72.92XA Unspecified fracture of left femur, initial encounter for closed fracture (principal); R14.0 Abdominal distension (gaseous); J44.9 Chronic obstructive pulmonary disease, unspecified; Z86.69 Personal history of other diseases of the nervous system and sense organs; Z98.890 Other specified postprocedural states; Z79.899 Other long term (current) drug therapy; X58.XXXA Exposure to other specified factors, initial encounter; Y93.89 Activity, other specified; Y92.89 Other specified places as the place of occurrence of the external cause; Y99.8 Other external cause status
CPT/HCPCS: 72170; 99284

== ENCOUNTER 2021-10-24 20:37 | Emergency (ER) | payer MEDICARE, MEDICAID ==
[~2021-10-24] VITALS: Ht 162.6 cm; Wt 52.7 kg
[2021-10-24 20:59] VITALS: BP 133/79
[2021-10-24] MEDS ORDERED: ondansetron/PF 4mg/2ml inj IV ONE (23:05)
[2021-10-24] MEDS ORDERED: morphine 2 MG/ML inj. syringe IV ONE (23:05)
[2021-10-25] MEDS ORDERED: IBUP-860 PO (00:30)
[2021-10-25] MEDS ORDERED: HYDR-3965 PO ×3 (00:30→17:48)
--- NOTE | 2021-10-25 16:09 | NUR ---
PT'S FACILITY CALLED THIS AM STATING THAT MEDICATION THAT WAS E-TRANSMITTED TO [facility] WAS NOT RECEIVED. [facility] WAS CALLED AND RX FOR IBUPROVEN 400MG; 1 TAB Q4H PRN PAIN #30, NO REFILLS WAS ACCEPTED BY PHONE. [facility] WOULD NOT ACCEPT A VERBAL FOR RX FOR NORCO 5/325MG AND REQUESTED THAT IT BE RETRANSMITTED. PROVIDER THAT SAW PT ON 10/24/21 WAS NOTIFIED AND NORCO 5/325MG ; 1 TAB Q6H PRN PAIN #14, NO REFILLS WAS RETRANSMITTED TO [facility]. [facility] WAS CALLED AND NOTIFIED OF THE PENDING TRANMITTAL AND PT'S FACILITY WAS CALL AND NOTIFIED THAT [facility]TS RX FOR NORCO WAS RETRANSMITTED. FACILITY REQUESTED THAT CONFORMATION OF TRANSMISSION BE FAXED TO [phone]. CONFORMATION WAS FAXED REQUESTED.
== END 2021-10-25 00:57 | disposition home or self-care (01) ==
LOC: ER 20:38
DX: S82.241A Displaced spiral fracture of shaft of right tibia, initial encounter for closed fracture (principal); R60.0 Localized edema; M79.661 Pain in right lower leg; I10 Essential (primary) hypertension; J44.9 Chronic obstructive pulmonary disease, unspecified; Z86.69 Personal history of other diseases of the nervous system and sense organs; Z98.890 Other specified postprocedural states; Z88.8 Allergy status to other drugs, medicaments and biological substances; Z79.899 Other long term (current) drug therapy; X50.1XXA Overexertion from prolonged static or awkward postures, initial encounter; Y93.89 Activity, other specified; Y92.89 Other specified places as the place of occurrence of the external cause; Y99.8 Other external cause status
CPT/HCPCS: 29505; 73590; 73610; 96374; 96375; 99284; J2270; J2405; 29515

== ENCOUNTER 2024-07-11 08:09 | Inpatient (IN) | payer MEDICARE, MEDICAID ==
[2024-07-11] VITALS (8 sets, daily range): BP systolic 136–140; BP diastolic 50–64; PULSE 87–115; RESP 20–30; TEMP 97.6–97.7; O2SAT 94–99
[~2024-07-11] VITALS: Ht 144.8 cm; Wt 82.0 kg
[~2024-07-11 08:09] MED LIST changes: +DIAZ-546 PO; -DIAZ10TA PO; +HYDR-3965 PO; +IBUP-860 PO
[2024-07-11 09:05] LABS: BASOPHILS % (AUTO) 0.2 % (0-1); EOSINOPHILS # (AUTO) 0.3 X10'3 (0-0.9); EOSINOPHILS % (AUTO) 2.4 % (0-6); HEMATOCRIT 40.5 % (35.0-45.0); HEMOGLOBIN 13.8 g/dl (12.0-16.0); LYMPHOCYTES # (AUTO) 0.6 X10'3 (1.1-4.8); LYMPHOCYTES % (AUTO) 5.7 % (21-51); MEAN CORPUSCULAR HEMOGLOBIN 32.7 PG (27.0-31.0); MEAN CORPUSCULAR VOLUME 96.2 FL (78-98); MEAN PLATELET VOLUME 10.4 FL (7.4-10.4); MONOCYTES # (AUTO) 0.8 X10'3 (0-0.9); MONOCYTES % (AUTO) 7.1 % (2-12); NEUTROPHILS # (AUTO) 9.3 X10'3 (1.8-7.7); NEUTROPHILS % (AUTO) 84.6 % (42-75); PLATELET COUNT 160 X10'3 (140-440); RED BLOOD COUNT 4.21 X10'6 (4.20-5.60); RED CELL DISTRIBUTION WIDTH 13.2 % (11.5-14.5)
[2024-07-11 09:32] LABS: ALANINE AMINOTRANSFERASE 25 U/L (12-78); ALBUMIN 3.3 G/DL (3.4-5.0); ALBUMIN/GLOBULIN RATIO 0.8 (1.1-1.5); ALKALINE PHOSPHATASE 175 IU/L (46-116); ANION GAP 6 (8-16); BILIRUBIN,TOTAL 0.2 MG/DL (0.1-1.0); BLOOD UREA NITROGEN 17 MG/DL (7-18); BUN/CREATININE RATIO 36.2 (10.0-20.0); CALCIUM 9.2 MG/DL (8.5-10.1); CHLORIDE 101 MMOL/L (99-107); CREATININE 0.47 MG/DL (0.40-0.90); GLUCOSE 99 MG/DL (70-104); SODIUM 135 MMOL/L (135-145); TOTAL CARBON DIOXIDE 28.3 MMOL/L (24-32); TOTAL PROTEIN 7.6 G/DL (6.4-8.2); eCRCL 76 ML/MIN; eGFR > 90 ML/MIN
[2024-07-11 09:55] LABS: ASPARTATE AMINO TRANSFERASE 21 U/L (10-37); POTASSIUM 5.1 MMOL/L (3.5-5.1)
[2024-07-11] MEDS ORDERED: [UNRECOGNIZED DRUG - CODE] PO (11:15)
[2024-07-11] MEDS ORDERED: AMLO1CAP77 PO (11:15)
[2024-07-11] MEDS ORDERED: LISI20TA28 PO (11:15)
[2024-07-11] MEDS ORDERED: VENL-191 PO (11:15)
[2024-07-11] MEDS: CefTRIAXone/D5W-Rocephin 1gm 50 ML IV ONE (12:09)
[2024-07-11] MEDS: hydrALAZINE 20mg/ml inj. IV ONE (12:09)
[2024-07-11 12:20] LABS: ABG BASE EXCESS 0.6 mmol/L (-2.0-3.0); ABG HCO3 28.6 mmol/L (21.0-28.0); ABG OXYGEN SATURATION 94.5 % (94.0-98.0); ABG PCO2 (T) 60.1 mmHg (32.0-45.0); ABG PH (T) 7.294 (7.350-7.450); ABG PO2 (T) 77.9 mmHg (83.0-108.0); FCOHb 0.3 % (0.5-1.5); FHHb 5.5 % (0.0-5.0); FLOW 7 L/min; FMetHb 0.2 % (0.0-1.5); MODE MASK - SIMPLE; PATIENT TEMPERATURE 36.9; TOTAL HEMOGLOBIN 14.7 G/dl (12.0-16.0)
[2024-07-11] MEDS: albuterol 2.5 MG/3 ML nebule NEB ONE (12:27)
[2024-07-11] MEDS ORDERED: iohexol 350MG/ML 100ml bottle IV ONE (12:29)
[2024-07-11] MEDS: albuterol 2.5 MG/3 ML nebule CONTNEB PRN (12:45)
[2024-07-11] MEDS ORDERED: ondansetron/PF 4mg/2ml inj IV PRN (13:20)
[2024-07-11] MEDS ORDERED: baclofen 10mg tablet PEG PRN (13:25)
[2024-07-11] MEDS ORDERED: enalaprilat 1.25mg/ml 2ml vial IV PRN (13:25)
[2024-07-11] MEDS: Levetiracetam-NACL 500mg/100ml 100 ML IV ONE (14:05)
[2024-07-11] MEDS: normal saline 1000ml 1,000 ML IV SCH (14:05)
[2024-07-11] MEDS: albuterol 2.5 MG/3 ML nebule NEB PRN (20:36)
[2024-07-11] MEDS: heparin, porcine 5000 units/ml vial SQ SCH (21:35)
[2024-07-12] VITALS (19 sets, daily range): BP systolic 98–147; BP diastolic 39–66; PULSE 76–105; RESP 13–28; TEMP 97.5–98.9; O2SAT 92–99
[2024-07-12 07:23] LABS: BASOPHILS % (AUTO) 0.2 % (0-1); EOSINOPHILS # (AUTO) 0.3 X10'3 (0-0.9); EOSINOPHILS % (AUTO) 2.1 % (0-6); HEMOGLOBIN 12.5 g/dl (12.0-16.0); LYMPHOCYTES # (AUTO) 0.3 X10'3 (1.1-4.8); LYMPHOCYTES % (AUTO) 2.5 % (21-51); MEAN CORPUSCULAR HEMOGLOBIN 32.5 PG (27.0-31.0); MEAN CORPUSCULAR HGB CONC 33.9 g/dL (33.0-36.5); MEAN PLATELET VOLUME 10.2 FL (7.4-10.4); MONOCYTES # (AUTO) 0.7 X10'3 (0-0.9); MONOCYTES % (AUTO) 5.1 % (2-12); NEUTROPHILS # (AUTO) 11.9 X10'3 (1.8-7.7); NEUTROPHILS % (AUTO) 90.1 % (42-75); PLATELET COUNT 140 X10'3 (140-440); RED BLOOD COUNT 3.85 X10'6 (4.20-5.60); RED CELL DISTRIBUTION WIDTH 13.9 % (11.5-14.5); WHITE BLOOD COUNT 13.2 X10'3 (4.5-11.0)
[2024-07-12 07:35] LABS: ALANINE AMINOTRANSFERASE 25 U/L (12-78); ALBUMIN 3.1 G/DL (3.4-5.0); ALBUMIN/GLOBULIN RATIO 0.8 (1.1-1.5); ALKALINE PHOSPHATASE 139 IU/L (46-116); ANION GAP 9 (8-16); ASPARTATE AMINO TRANSFERASE 31 U/L (10-37); BILIRUBIN,TOTAL 0.3 MG/DL (0.1-1.0); BLOOD UREA NITROGEN 17 MG/DL (7-18); BUN/CREATININE RATIO 33.3 (10.0-20.0); CHLORIDE 105 MMOL/L (99-107); CREATININE 0.51 MG/DL (0.40-0.90); GLUCOSE 94 MG/DL (70-104); POTASSIUM 4.9 MMOL/L (3.5-5.1); SODIUM 139 MMOL/L (135-145); TOTAL CARBON DIOXIDE 25.5 MMOL/L (24-32); TOTAL PROTEIN 7.1 G/DL (6.4-8.2); eCRCL 70 ML/MIN; eGFR > 90 ML/MIN
[2024-07-12 09:39] LABS: PRO BRAIN NATRIURETIC PEPTIDE 1263 PG/ML (0-125)
[2024-07-12] MEDS: Levetiracetam-NACL 500mg/100ml 100 ML IV SCH (09:43)
[2024-07-12] MEDS: levoTHYROXINE 100mcg tablet GT SCH (09:43)
[2024-07-12] MEDS: CefTRIAXone/D5W-Rocephin 1gm 50 ML IV SCH (09:59)
[2024-07-12] MEDS: methylPREDNISolone sod succ 125mg/2ml vial IV ONE (11:25)
[2024-07-12] MEDS: furosemide 10 MG/1 ML 10ml inj IV ONE (11:25)
[2024-07-12] MEDS ORDERED: LidoCAINE 2% Topical Jelly 11mL syringe (UROJET) TOP ONE (12:30)
[2024-07-12] MEDS: ipratropium/albuterol 3ml nebule NEB SCH (15:39)
[2024-07-12] MEDS: methylPREDNISolone sod succ 125mg/2ml vial IV SCH (20:00)
[2024-07-12] MEDS: furosemide 20 MG/2 ML vial IV SCH (20:00)
[2024-07-13] VITALS (26 sets, daily range): BP systolic 92–111; BP diastolic 44–62; PULSE 74–100; RESP 20–30; TEMP 97.5–98.1; O2SAT 92–98
[2024-07-13 06:32] LABS: BASOPHILS % (AUTO) 0 % (0-1); EOSINOPHILS % (AUTO) 0 % (0-6); HEMATOCRIT 36.1 % (35.0-45.0); HEMOGLOBIN 12.2 g/dl (12.0-16.0); LYMPHOCYTES # (AUTO) 0.3 X10'3 (1.1-4.8); LYMPHOCYTES % (AUTO) 5.5 % (21-51); MEAN CORPUSCULAR HEMOGLOBIN 32.6 PG (27.0-31.0); MEAN CORPUSCULAR HGB CONC 33.8 g/dL (33.0-36.5); MEAN CORPUSCULAR VOLUME 96.4 FL (78-98); MEAN PLATELET VOLUME 9.8 FL (7.4-10.4); MONOCYTES # (AUTO) 0.4 X10'3 (0-0.9); NEUTROPHILS # (AUTO) 5.2 X10'3 (1.8-7.7); NEUTROPHILS % (AUTO) 88.5 % (42-75); PLATELET COUNT 139 X10'3 (140-440); RED BLOOD COUNT 3.74 X10'6 (4.20-5.60); RED CELL DISTRIBUTION WIDTH 13.8 % (11.5-14.5); WHITE BLOOD COUNT 5.9 X10'3 (4.5-11.0)
[2024-07-13 07:01] LABS: ALANINE AMINOTRANSFERASE 25 U/L (12-78); ALBUMIN/GLOBULIN RATIO 0.7 (1.1-1.5); ALKALINE PHOSPHATASE 121 IU/L (46-116); ANION GAP 11 (8-16); ASPARTATE AMINO TRANSFERASE 34 U/L (10-37); BILIRUBIN,TOTAL 0.3 MG/DL (0.1-1.0); BLOOD UREA NITROGEN 31 MG/DL (7-18); BUN/CREATININE RATIO 44.9 (10.0-20.0); CALCIUM 9.1 MG/DL (8.5-10.1); CHLORIDE 103 MMOL/L (99-107); CREATININE 0.69 MG/DL (0.40-0.90); GLUCOSE 121 MG/DL (70-104); POTASSIUM 3.9 MMOL/L (3.5-5.1); SODIUM 140 MMOL/L (135-145); TOTAL PROTEIN 7.3 G/DL (6.4-8.2); eCRCL 52 ML/MIN; eGFR 84 ML/MIN
[2024-07-13] MEDS: methylPREDNISolone sod succ 125mg/2ml vial IV SCH (14:46)
[2024-07-14] VITALS (23 sets, daily range): BP systolic 108–132; BP diastolic 51–63; PULSE 73–90; RESP 14–25; TEMP 97.5–99; O2SAT 91–99
[2024-07-14 06:43] LABS: BASOPHILS % (AUTO) 0.1 % (0-1); EOSINOPHILS % (AUTO) 0 % (0-6); HEMATOCRIT 35.7 % (35.0-45.0); HEMOGLOBIN 12.2 g/dl (12.0-16.0); LYMPHOCYTES # (AUTO) 0.4 X10'3 (1.1-4.8); LYMPHOCYTES % (AUTO) 4.5 % (21-51); MEAN CORPUSCULAR HEMOGLOBIN 32.6 PG (27.0-31.0); MEAN CORPUSCULAR HGB CONC 34.2 g/dL (33.0-36.5); MEAN CORPUSCULAR VOLUME 95.3 FL (78-98); MEAN PLATELET VOLUME 9.3 FL (7.4-10.4); MONOCYTES # (AUTO) 0.2 X10'3 (0-0.9); MONOCYTES % (AUTO) 2.5 % (2-12); NEUTROPHILS # (AUTO) 8.5 X10'3 (1.8-7.7); NEUTROPHILS % (AUTO) 92.9 % (42-75); PLATELET COUNT 153 X10'3 (140-440); RED BLOOD COUNT 3.75 X10'6 (4.20-5.60); RED CELL DISTRIBUTION WIDTH 14.3 % (11.5-14.5); WHITE BLOOD COUNT 9.2 X10'3 (4.5-11.0)
[2024-07-14 07:23] LABS: ALANINE AMINOTRANSFERASE 28 U/L (12-78); ALBUMIN 3.1 G/DL (3.4-5.0); ALBUMIN/GLOBULIN RATIO 0.7 (1.1-1.5); ALKALINE PHOSPHATASE 114 IU/L (46-116); ANION GAP 12 (8-16); ASPARTATE AMINO TRANSFERASE 32 U/L (10-37); BILIRUBIN,TOTAL 0.2 MG/DL (0.1-1.0); BLOOD UREA NITROGEN 68 MG/DL (7-18); BUN/CREATININE RATIO 61.3 (10.0-20.0); CALCIUM 8.7 MG/DL (8.5-10.1); CHLORIDE 102 MMOL/L (99-107); CREATININE 1.11 MG/DL (0.40-0.90); GLUCOSE 127 MG/DL (70-104); POTASSIUM 4.9 MMOL/L (3.5-5.1); PREALBUMIN 19.7 MG/DL (19-36); SODIUM 140 MMOL/L (135-145); TOTAL CARBON DIOXIDE 25.6 MMOL/L (24-32); TOTAL PROTEIN 7.4 G/DL (6.4-8.2); eCRCL 29 ML/MIN; eGFR 49 ML/MIN
[2024-07-14] MEDS ORDERED: levoTHYROXINE 100mcg tablet PO SCH (08:00)
[2024-07-14] MEDS ORDERED: levetiracetam 250mg tablet PEG SCH (08:00)
[2024-07-14] MEDS: methylPREDNISolone sod succ 125mg/2ml vial IV ONE (11:04)
[2024-07-14] MEDS: LidoCAINE 2% Topical Jelly 11mL syringe (UROJET) TOP ONE (16:24)
[2024-07-14] MEDS: methylPREDNISolone sod succ 125mg/2ml vial IV SCH (16:24)
[2024-07-15] VITALS (24 sets, daily range): BP systolic 90–121; BP diastolic 48–54; PULSE 72–92; RESP 12–26; TEMP 97.3–98; O2SAT 90–99
[2024-07-15] MEDS: docusate sodium 100mg/10ml UD cup GT SCH (05:25)
[2024-07-15 06:59] LABS: BASOPHILS % (AUTO) 0 % (0-1); EOSINOPHILS % (AUTO) 0 % (0-6); HEMOGLOBIN 11.8 g/dl (12.0-16.0); LYMPHOCYTES # (AUTO) 0.3 X10'3 (1.1-4.8); LYMPHOCYTES % (AUTO) 4.2 % (21-51); MEAN CORPUSCULAR HEMOGLOBIN 32.4 PG (27.0-31.0); MEAN CORPUSCULAR HGB CONC 33.8 g/dL (33.0-36.5); MEAN PLATELET VOLUME 9.1 FL (7.4-10.4); MONOCYTES # (AUTO) 0.6 X10'3 (0-0.9); MONOCYTES % (AUTO) 8.5 % (2-12); NEUTROPHILS # (AUTO) 6.4 X10'3 (1.8-7.7); NEUTROPHILS % (AUTO) 87.3 % (42-75); PLATELET COUNT 159 X10'3 (140-440); RED BLOOD COUNT 3.65 X10'6 (4.20-5.60); RED CELL DISTRIBUTION WIDTH 14.1 % (11.5-14.5); WHITE BLOOD COUNT 7.4 X10'3 (4.5-11.0)
[2024-07-15] MEDS: polyethylene glycol 3350 17gm powd pack GT SCH (07:11)
[2024-07-15] MEDS: furosemide 20MG tablet PO SCH (07:11)
[2024-07-15 07:50] LABS: ALANINE AMINOTRANSFERASE 31 U/L (12-78); ALBUMIN 2.9 G/DL (3.4-5.0); ALBUMIN/GLOBULIN RATIO 0.7 (1.1-1.5); ALKALINE PHOSPHATASE 99 IU/L (46-116); ANION GAP 9 (8-16); ASPARTATE AMINO TRANSFERASE 25 U/L (10-37); BILIRUBIN,TOTAL 0.3 MG/DL (0.1-1.0); BLOOD UREA NITROGEN 75 MG/DL (7-18); BUN/CREATININE RATIO 79.8 (10.0-20.0); CALCIUM 7.8 MG/DL (8.5-10.1); CHLORIDE 101 MMOL/L (99-107); CREATININE 0.94 MG/DL (0.40-0.90); GLUCOSE 123 MG/DL (70-104); POTASSIUM 5.4 MMOL/L (3.5-5.1); SODIUM 137 MMOL/L (135-145); TOTAL CARBON DIOXIDE 27.3 MMOL/L (24-32); TOTAL PROTEIN 6.9 G/DL (6.4-8.2); eCRCL 34 ML/MIN; eGFR 59 ML/MIN
[2024-07-15] MEDS: azithromycin/NS 500mg/250ml 250 ML IV SCH (08:57)
[2024-07-15] MEDS: methylPREDNISolone sod succ 125mg/2ml vial IV SCH (15:31)
[2024-07-16] VITALS (25 sets, daily range): BP systolic 102–151; BP diastolic 43–69; PULSE 61–81; RESP 17–28; TEMP 97.5–99.9; O2SAT 93–98
[2024-07-16 06:44] LABS: BASOPHILS % (AUTO) 0.1 % (0-1); EOSINOPHILS % (AUTO) 0 % (0-6); HEMATOCRIT 32.8 % (35.0-45.0); HEMOGLOBIN 11.3 g/dl (12.0-16.0); LYMPHOCYTES # (AUTO) 0.3 X10'3 (1.1-4.8); LYMPHOCYTES % (AUTO) 5.6 % (21-51); MEAN CORPUSCULAR HGB CONC 34.3 g/dL (33.0-36.5); MEAN CORPUSCULAR VOLUME 96.2 FL (78-98); MEAN PLATELET VOLUME 9.1 FL (7.4-10.4); MONOCYTES # (AUTO) 0.3 X10'3 (0-0.9); MONOCYTES % (AUTO) 6.7 % (2-12); NEUTROPHILS # (AUTO) 4.3 X10'3 (1.8-7.7); NEUTROPHILS % (AUTO) 87.6 % (42-75); PLATELET COUNT 138 X10'3 (140-440); RED BLOOD COUNT 3.41 X10'6 (4.20-5.60); RED CELL DISTRIBUTION WIDTH 13.6 % (11.5-14.5); WHITE BLOOD COUNT 4.9 X10'3 (4.5-11.0)
[2024-07-16 07:13] LABS: ALANINE AMINOTRANSFERASE 40 U/L (12-78); ALBUMIN 2.8 G/DL (3.4-5.0); ALBUMIN/GLOBULIN RATIO 0.7 (1.1-1.5); ALKALINE PHOSPHATASE 92 IU/L (46-116); ANION GAP 6 (8-16); ASPARTATE AMINO TRANSFERASE 28 U/L (10-37); BILIRUBIN,TOTAL 0.2 MG/DL (0.1-1.0); BLOOD UREA NITROGEN 79 MG/DL (7-18); BUN/CREATININE RATIO 90.8 (10.0-20.0); CALCIUM 7.5 MG/DL (8.5-10.1); CHLORIDE 106 MMOL/L (99-107); CREATININE 0.87 MG/DL (0.40-0.90); GLUCOSE 131 MG/DL (70-104); POTASSIUM 5.6 MMOL/L (3.5-5.1); SODIUM 141 MMOL/L (135-145); TOTAL PROTEIN 6.6 G/DL (6.4-8.2); eCRCL 37 ML/MIN; eGFR 64 ML/MIN
[2024-07-17] VITALS (22 sets, daily range): BP systolic 118–145; BP diastolic 45–66; PULSE 63–78; RESP 17–28; TEMP 97.4–99.7; O2SAT 97–99
[2024-07-17 06:46] LABS: PREALBUMIN 36.9 MG/DL (19-36)
[2024-07-17 07:28] LABS: ANION GAP 9 (8-16); BLOOD UREA NITROGEN 55 MG/DL (7-18); BUN/CREATININE RATIO 85.9 (10.0-20.0); CALCIUM 7.7 MG/DL (8.5-10.1); CHLORIDE 109 MMOL/L (99-107); CREATININE 0.64 MG/DL (0.40-0.90); SODIUM 145 MMOL/L (135-145); TOTAL CARBON DIOXIDE 26.8 MMOL/L (24-32); eCRCL 50 ML/MIN; eGFR > 90 ML/MIN
[2024-07-17 07:33] LABS: GLUCOSE 131 MG/DL (70-104)
[2024-07-17] MEDS ORDERED: bisacodyl 10mg suppository rectal RC PRN (08:55)
[2024-07-17] MEDS: magnesium citrate 296ml oral solution PO ONE (12:03)
[2024-07-17] MEDS: methylPREDNISolone sod succ 125mg/2ml vial IV SCH (23:55)
[2024-07-18] VITALS (21 sets, daily range): BP systolic 130–138; BP diastolic 55–99; PULSE 56–97; RESP 16–28; TEMP 97.6–99.5; O2SAT 94–99
[2024-07-18 07:47] LABS: ALANINE AMINOTRANSFERASE 45 U/L (12-78); ALBUMIN 2.7 G/DL (3.4-5.0); ALBUMIN/GLOBULIN RATIO 0.8 (1.1-1.5); ALKALINE PHOSPHATASE 96 IU/L (46-116); ANION GAP 4 (8-16); ASPARTATE AMINO TRANSFERASE 17 U/L (10-37); BILIRUBIN,TOTAL 0.3 MG/DL (0.1-1.0); BLOOD UREA NITROGEN 36 MG/DL (7-18); BUN/CREATININE RATIO 76.6 (10.0-20.0); CALCIUM 7.6 MG/DL (8.5-10.1); CHLORIDE 109 MMOL/L (99-107); CREATININE 0.47 MG/DL (0.40-0.90); GLUCOSE 102 MG/DL (70-104); POTASSIUM 5.3 MMOL/L (3.5-5.1); SODIUM 141 MMOL/L (135-145); TOTAL CARBON DIOXIDE 28.5 MMOL/L (24-32); TOTAL PROTEIN 6.2 G/DL (6.4-8.2); eCRCL 68 ML/MIN; eGFR > 90 ML/MIN
[2024-07-18 07:53] LABS: BASOPHILS % (AUTO) 0 % (0-1); EOSINOPHILS % (AUTO) 0.1 % (0-6); HEMATOCRIT 31.7 % (35.0-45.0); HEMOGLOBIN 10.7 g/dl (12.0-16.0); LYMPHOCYTES # (AUTO) 0.3 X10'3 (1.1-4.8); MEAN CORPUSCULAR HEMOGLOBIN 32.5 PG (27.0-31.0); MEAN CORPUSCULAR HGB CONC 33.9 g/dL (33.0-36.5); MEAN CORPUSCULAR VOLUME 95.9 FL (78-98); MEAN PLATELET VOLUME 9.4 FL (7.4-10.4); MONOCYTES # (AUTO) 0.7 X10'3 (0-0.9); MONOCYTES % (AUTO) 11.1 % (2-12); NEUTROPHILS % (AUTO) 83.8 % (42-75); PLATELET COUNT 128 X10'3 (140-440); RED BLOOD COUNT 3.31 X10'6 (4.20-5.60); RED CELL DISTRIBUTION WIDTH 13.7 % (11.5-14.5); WHITE BLOOD COUNT 5.9 X10'3 (4.5-11.0)
[2024-07-18 08:22] LABS: TOTAL CELLS COUNTED 100
[2024-07-18 08:23] LABS: PLATELET ESTIMATE DECREASED
[2024-07-19] VITALS (13 sets, daily range): BP systolic 113–147; BP diastolic 42–64; PULSE 62–73; RESP 16–25; TEMP 97.1–97.9; O2SAT 94–100
[2024-07-19 07:56] LABS: ALANINE AMINOTRANSFERASE 36 U/L (12-78); ALBUMIN 2.7 G/DL (3.4-5.0); ALBUMIN/GLOBULIN RATIO 0.8 (1.1-1.5); ALKALINE PHOSPHATASE 94 IU/L (46-116); ANION GAP 6 (8-16); ASPARTATE AMINO TRANSFERASE 17 U/L (10-37); BILIRUBIN,TOTAL 0.3 MG/DL (0.1-1.0); BLOOD UREA NITROGEN 27 MG/DL (7-18); CALCIUM 7.8 MG/DL (8.5-10.1); CHLORIDE 105 MMOL/L (99-107); CREATININE 0.45 MG/DL (0.40-0.90); GLUCOSE 97 MG/DL (70-104); POTASSIUM 5.8 MMOL/L (3.5-5.1); SODIUM 136 MMOL/L (135-145); TOTAL CARBON DIOXIDE 25.4 MMOL/L (24-32); TOTAL PROTEIN 6.2 G/DL (6.4-8.2); eCRCL 71 ML/MIN; eGFR > 90 ML/MIN
[2024-07-19] MEDS ORDERED: FURO20TA4 PO (10:30)
== END 2024-07-19 17:12 | DRG 177 ==
LOC: ER 08:09 → ED HOLD 13:21 → PCU 3S 19:33
PROVIDERS: ADMIT Internal Medicine; ATTEND Internal Medicine
PROC: B32T1ZZ Computerized Tomography (CT Scan) of Left Pulmonary Artery using Low Osmolar Contrast (ICD-10-PCS; 2024-07-11)
PROC: B3201ZZ Computerized Tomography (CT Scan) of Thoracic Aorta using Low Osmolar Contrast (ICD-10-PCS; 2024-07-11)
PROC: B32S1ZZ Computerized Tomography (CT Scan) of Right Pulmonary Artery using Low Osmolar Contrast (ICD-10-PCS; 2024-07-11)
PROC: 5A09357 Assistance with Respiratory Ventilation, Less than 24 Consecutive Hours, Continuous Positive Airway Pressure (ICD-10-PCS; 2024-07-12)
PROC: 5A09357 Assistance with Respiratory Ventilation, Less than 24 Consecutive Hours, Continuous Positive Airway Pressure (ICD-10-PCS; 2024-07-13)
PROC: 5A09357 Assistance with Respiratory Ventilation, Less than 24 Consecutive Hours, Continuous Positive Airway Pressure (ICD-10-PCS; 2024-07-14)
PROC: 5A09457 Assistance with Respiratory Ventilation, 24-96 Consecutive Hours, Continuous Positive Airway Pressure (ICD-10-PCS; principal; 2024-07-15)
PROC: 5A09357 Assistance with Respiratory Ventilation, Less than 24 Consecutive Hours, Continuous Positive Airway Pressure (ICD-10-PCS; 2024-07-18)
PROC: 5A09357 Assistance with Respiratory Ventilation, Less than 24 Consecutive Hours, Continuous Positive Airway Pressure (ICD-10-PCS; 2024-07-19)
DX: J15.69 Pneumonia due to other Gram-negative bacteria (principal); I50.33 Acute on chronic diastolic (congestive) heart failure; J96.22 Acute and chronic respiratory failure with hypercapnia; J96.21 Acute and chronic respiratory failure with hypoxia; G82.20 Paraplegia, unspecified; N17.9 Acute kidney failure, unspecified; E87.29 Other acidosis; J44.0 Chronic obstructive pulmonary disease with (acute) lower respiratory infection; J45.901 Unspecified asthma with (acute) exacerbation; Z20.822 Contact with and (suspected) exposure to COVID-19; I11.0 Hypertensive heart disease with heart failure; J15.9 Unspecified bacterial pneumonia; Z66 Do not resuscitate; E03.9 Hypothyroidism, unspecified; E87.5 Hyperkalemia; K59.00 Constipation, unspecified
CPT/HCPCS: 36415; 36600; 71045; 71275; 74018; 76700; 80048; 80053; 82803; 82948; 83880; 84134; 84145; 85007; 85018; 85025; 87081; 87502; 87503; 87811; 93308; 94640; 94660; 94760; A4314; A4349; A4615; A4620; A6212; A6213; A6402; A6449; A7015; C1758; G0378; J0360; J0456; J0696; J1644; J1940; J1953; J2919; J7030; J7040; Q9967

== ENCOUNTER 2024-08-21 10:04 | Outpatient (CLI) | payer MEDICARE, MEDICAID ==
[~2024-08-21 10:04] MED LIST changes: +AMLO1CAP77 PO; +FURO20TA4 PO; +LISI20TA28 PO; -NOR5T PEG; +VENL-191 PO; +[UNRECOGNIZED DRUG - CODE] PO
== END 2024-08-21 23:59 | disposition home or self-care (01) ==
LOC: RAD 10:04
PROVIDERS: ATTEND Pediatrics Sports Medicine
DX: M51.369 Other intervertebral disc degeneration, lumbar region without mention of lumbar back pain or lower extremity pain (principal); M81.0 Age-related osteoporosis without current pathological fracture; M25.78 Osteophyte, vertebrae; M16.9 Osteoarthritis of hip, unspecified; S92.513A Displaced fracture of proximal phalanx of unspecified lesser toe(s), initial encounter for closed fracture; M79.672 Pain in left foot; X58.XXXA Exposure to other specified factors, initial encounter; Y93.89 Activity, other specified; Y92.89 Other specified places as the place of occurrence of the external cause; Y99.8 Other external cause status
CPT/HCPCS: 72131